=== PATIENT | female | born 1970 | race Hispanic/Latino ===

== ENCOUNTER 2021-09-03 20:15 | Emergency (ER) | payer MEDICAID, OTHER ==
[~2021-09-03] VITALS: Ht 160 cm; Wt 76.2 kg
[2021-09-03 20:31] LABS: APPEARANCE,URINE Clear (CLEAR); BILIRUBIN,URINE Negative (NEGATIVE); COLOR,URINE Yellow (YELLOW); GLUCOSE, URINE (UA) Negative (NEGATIVE); KETONES,URINE Negative (NEGATIVE); LEUKOCYTE ESTERASE ,URINE Negative (NEGATIVE); NITRATE,URINE Negative (NEGATIVE); OCCULT BLOOD,URINE Negative (NEGATIVE); PROTEIN,URINE Negative (NEGATIVE)
[2021-09-03 20:51] LABS: BASOPHILS % (AUTO) 0.7 % (0.0-5.0); EOSINOPHILS % (AUTO) 1.8 % (0.0-8.0); HEMATOCRIT 43.6 % (36-48); LYMPHOCYTES % (AUTO) 27.9 % (21.0-51.0); MEAN CORPUSCULAR HEMOGLOBIN 31.4 pg (27.0-33.0); MEAN CORPUSCULAR HGB CONC 32.8 g/dL (32.0-36.0); MEAN CORPUSCULAR VOLUME 95.6 fL (79-99); MONOCYTES % (AUTO) 8.7 % (3.0-13.0); NEUTROPHILS % (AUTO) 60.5 % (40.0-77.0); PLATELET COUNT (AUTO) 295 K/uL (130-400); RED BLOOD CELL COUNT(AUTO) 4.56 MIL/uL (4.00-5.50); RED CELL DISTRIBUTION WIDTH 12.6 % (11.0-15.5); WHITE BLOOD COUNT (AUTO) 8.3 K/uL (4.8-10.8)
[2021-09-03] MEDS ORDERED: HYDROCODONE/ACETAMINOPHEN 5/325 MG TAB PO ONE (21:00)
[2021-09-03] MEDS ORDERED: ORPHENADRINE CITRATE 30 MG/ML ML IV ONE (21:00)
[2021-09-03 21:06] LABS: CREATININE 0.9 mg/dL (0.5-1.5); POTASSIUM 3.2 mmol/L (3.5-5.1)
[2021-09-03 21:10] LABS: ALBUMIN 3.3 g/dL (3.5-5.0); BILIRUBIN,TOTAL 0.5 mg/dL (0.2-1.0); TOTAL PROTEIN, SERUM 7.8 g/dL (6.0-8.3)
[2021-09-03] MEDS ORDERED: POTASSIUM BICARB/CIT AC 25 MEQ TABLET.EFF PO ONE (21:30)
[2021-09-03] MEDS ORDERED: KETOROLAC 30MG VIAL (30MG/ML) IV ONE (21:30)
[2021-09-03] MEDS ORDERED: KETOROLAC 30MG VIAL (30MG/ML) ONE (21:31)
[2021-09-03] MEDS ORDERED: POTASSIUM BICARB/CIT AC 25 MEQ TABLET.EFF ONE (21:31)
[2021-09-03] MEDS ORDERED: DEXAMETHASONE SOD PHOSPHATE 4 MG/ML 1ML VIAL IVP SCH (23:00)
[2021-09-03] MEDS ORDERED: LIDOCAINE 5% TOPICAL PATCH TP ONE (23:00)
[2021-09-04 00:06] VITALS: BP 137/101
[2021-09-04] MEDS ORDERED: CYCL-309 PO (00:08)
[2021-09-04] MEDS ORDERED: DEXA4 PO (00:08)
[2021-09-04] MEDS ORDERED: IBUP-2070 PO (00:08)
[2021-09-04] MEDS ORDERED: FUROSEMIDE 40MG VIAL IV SCH (06:00)
== END 2021-09-04 00:23 | disposition home or self-care (01) ==
LOC: EDH 20:15
DX: M62.830 Muscle spasm of back (principal); M54.50 Low back pain, unspecified
CPT/HCPCS: 36415; 72131; 80053; 81003; 83690; 85025; 85651; 96374; 96375; 99284; J1100; J1885; J2360

== ENCOUNTER 2021-09-30 16:40 | Emergency (ER) | payer MEDICAID, OTHER ==
[~2021-09-30] VITALS: Ht 154.9 cm; Wt 73.9 kg
[~2021-09-30 16:40] MED LIST: CYCL-309 PO; DEXA4 PO; IBUP-2070 PO
[2021-09-30] MEDS ORDERED: KETOROLAC 60 MG VIAL (30MG/ML) ONE (16:55)
[2021-09-30] MEDS ORDERED: CYCLOBENZAPRINE HCL 10 MG TABLET ONE (16:56)
[2021-09-30] MEDS ORDERED: HYDROCODONE/ACETAMINOPHEN 10/325 MG TAB ONE (16:56)
[2021-09-30] MEDS ORDERED: HYDROCODONE/ACETAMINOPHEN 10/325 MG TAB PO ONE (17:00)
[2021-09-30] MEDS ORDERED: CYCLOBENZAPRINE HCL 10 MG TABLET PO ONE (17:00)
[2021-09-30] MEDS ORDERED: KETOROLAC 60 MG VIAL (30MG/ML) IM ONE (17:00)
[2021-09-30] MEDS ORDERED: ACET-2247 PO (17:50)
[2021-09-30 18:02] VITALS: BP 123/63
== END 2021-09-30 18:03 | disposition home or self-care (01) ==
LOC: EDH 16:40
DX: S42.212A Unspecified displaced fracture of surgical neck of left humerus, initial encounter for closed fracture (principal); S50.02XA Contusion of left elbow, initial encounter; S80.02XA Contusion of left knee, initial encounter; Z79.899 Other long term (current) drug therapy; W01.0XXA Fall on same level from slipping, tripping and stumbling without subsequent striking against object, initial encounter; Y93.89 Activity, other specified; Y92.098 Other place in other non-institutional residence as the place of occurrence of the external cause; Y99.8 Other external cause status
CPT/HCPCS: 29105; 71045; 73030; 73060; 73080; 73562; 96372; 99284; J1885